=== PATIENT | female | born 1960 | race Caucasian/White ===

== ENCOUNTER 2017-05-21 07:56 | Emergency (ER) | payer BC ==
[2017-05-21 08:09] VITALS: BP 104/59
--- NOTE | 2017-05-21 08:31 | UC ---
Respiratory Complaint HPI - HPI Summary HPI Summary: 4-5 DAYS OF PERSISTENT COUGH AND CHEST CONGESTION. DENIES FEVER, N/V/D. HAD ST AND MYALGIAS INITIALLY THAT HAVE NOW RESOLVED. - History of Current Complaint Chief Complaint: UCRespiratory Stated Complaint: URI Time Seen by Provider: 05/21/17 08:17 Hx Obtained From: Patient Hx Last Menstrual Period: none since 2012 Onset/Duration: Gradual Onset, Lasting Days Timing: Constant Severity Initially: Moderate Severity Currently: Moderate Pain Intensity: 0 Pain Scale Used: 0-10 Numeric Character: Cough: Nonproductive Aggravating Factors: Nothing Alleviating Factors: Nothing Associated Signs And Symptoms: Positive: URI. Negative: Dyspnea, Fever, Chills , Pleuritic Chest Pain, Wheezing, Nasal Congestion, Hoarseness, Sinus Discomfort - Allergies/Home Medications Allergies/Adverse Reactions: Allergies Allergy/AdvReac Type Severity Reaction Status Date / Time Penicillin V Allergy Unknown See Comment Verified 03/02/16 08:19 [From Penicillin VK Potassium] Home Medications: Home Medications ARIPiprazole TAB* [Abilify TAB*] 7.5 mg PO BEDTIME 05/21/17 [History Confirmed 05/21/17] Biotin W/ Vitamins C & E [Hair Skin & Nails ... 1250-7.5-7.5 Mcg-mg-Unt] 1 chw PO BEDTIME 05/21/17 [History Confirmed 05/21/17] Cholecalciferol TAB* [Vitamin D TAB*] 1,000 unit PO DAILY 05/21/17 [History Confirmed 05/21/17] Nutritional Supplements [Estroven Nighttime] 1 tab PO BEDTIME 05/21/17 [History Confirmed 05/21/17] PMH/Surg Hx/FS Hx/Imm Hx Psychological History: Bipolar Disorder - Surgical History Surgical History: Yes Surgery Procedure, Year, and Place: foot x2 (right and left), R clavicle x2, D&C - Family History Known Family History: Positive: Diabetes Negative: Hypertension - Social History Alcohol Use: Rare Substance Use Type: None Smoking Status (MU): Never Smoked Tobacco Review of Systems Constitutional: Negative Respiratory: Cough Cardiovascular: Negative Gastrointestinal: Negative All Other Systems Reviewed And Are Negative: Yes Physical Exam Triage Information Reviewed: Yes Appearance: Well-Appearing, No Pain Distress, Well-Nourished Vital Signs: Initial Vital Signs Temp 97.4 F 05/21/17 08:05 Pulse 72 05/21/17 08:05 Resp 16 05/21/17 08:05 BP 104/59 05/21/17 08:05 Pulse Ox 96 05/21/17 08:05 Vital Signs Reviewed: Yes Eyes: Positive: Conjunctiva Clear ENT: Positive: Hearing grossly normal, Pharynx normal, TMs normal Neck: Positive: Supple, Nontender, No Lymphadenopathy Respiratory Exam: Normal Cardiovascular Exam: Normal Abdomen Description: Positive: Soft Musculoskeletal: Positive: No Edema Neurological: Positive: Alert Psychological: Positive: Age Appropriate Behavior Skin: Negative: rashes UC Diagnostic Evaluation - Laboratory O2 Sat by Pulse Oximetry: 96 Respiratory Course/Dx - Differential Dx/Diagnosis Provider Diagnoses: ACUTE URI Discharge - Discharge Plan Condition: Stable Disposition: HOME Prescriptions: Albuterol HFA INHALER* [Ventolin HFA Inhaler*] 2 puff INH Q4H PRN #1 mdi PRN Reason: Shortness Of Breath Spacer/Aerosol-Holding Chamber [Aerochamber Plus] 1 mis XX Q4H PRN #1 unit PRN Reason: Shortness Of Breath predniSONE TAB* [Deltasone TAB*] 40 mg PO DAILY #10 tab Patient Education Materials: Upper Respiratory Infection (ED) Referrals: Zoila Hill MD [Primary Care Provider] - If Needed Additional Instructions: YOUR SYMPTOMS ARE LIKELY VIRALLY MEDIATED AND SHOULD RESOLVE ON THEIR OWN WITH TIME. REST, HYDRATE, OTC MEDS NEEDED. WILL TREAT WITH PREDNISONE TO HELP WITH AIRWAY INFLAMMATION. USE INHALER TWICE DAILY AND EVERY 4 HOURS NEEDED. SEEK FOLLOW-UP IF YOU ARE NOT IMPROVING OVER THE NEXT 1-2 WEEKS.
== END 2017-05-21 08:44 | disposition home or self-care (01) ==
LOC: UCEAST 07:56
DX: J06.9 Acute upper respiratory infection, unspecified (principal); Z88.0 Allergy status to penicillin
CPT/HCPCS: 99212; G0463